=== PATIENT | male | born 1995 | race Caucasian/White ===

== ENCOUNTER → 2024-10-01 | Outpatient (CLI) | payer OTHER ==
--- NOTE | 2024-10-01 15:28 | US ---
EXAMINATION TYPE: US scrotum with doppler. DATE OF EXAM: 10/01/2024 COMPARISON: NONE CLINICAL INDICATION: Male, 29 years old with history of N50.819 PAIN IN TESTICLES; Left sided swelli ng x 4 days w pressure. Fell down stairs about 1.5 weeks ago. Hx prostatitis. TECHNIQUE: Grayscale, color Doppler and spectral Doppler imaging of the scrotum. FINDINGS: EXAM MEASUREMENTS: TESTICLES: Right Testicle: 3.8 x 1.7 x 3.2 cm Left Testicle: 3.9 x 1.9 x 3.0 cm EPIDIDYMIS HEAD: Right Epididymis: 1.0 x 1.4 x 1.5 cm Left Epididymis: 1.4 x 0.9 x 1.0 cm Doppler performed to assess for testicular vascularity; good bilateral color flow and spectral wavefo guillermo are seen. There is no evidence of testicular torsion. Presence of hydroceles: No Presence of varicoceles: No Cystic areas within left epididymal area consistent with benign epididymal cyst. IMPRESSION: No evidence of testicular torsion or mass. [facility], , 10/01/2024 3:26 PM
== END | disposition home or self-care (01) ==
LOC: RADUSWWP 14:55
PROVIDERS: ATTEND Family Medicine
DX: N50.819 Testicular pain, unspecified (principal); N41.9 Inflammatory disease of prostate, unspecified; W10.9XXA Fall (on) (from) unspecified stairs and steps, initial encounter
CPT/HCPCS: 76870; 93975